=== PATIENT | male | born 1960 | race Hispanic/Latino ===

== ENCOUNTER 2019-03-02 06:03 | Day surgery (SDC) | payer OTHER ==
[~2019-03-02 06:03] MED LIST: SODIUM CHLORIDE 0.9% 1000 ML 1,000 ML IV SCH
[2019-03-02] MEDS ORDERED: LIDOCAINE MPF (2%) 20 MG/1 ML VIAL 5 ML ONE (07:30)
--- NOTE | 2019-03-02 08:23 | Anesthesia Consultation ---
Anesthesia Consult and Med Hx Date of service: 03/02/19 - Airway Anesthetic Teeth Evaluation: Chipped (upper front) ROM Head & Neck: Adequate Mental/Hyoid Distance: Adequate Mallampati Class: Class III Intubation Access Assessment: Possibly Difficult - Pre-Operative Health Status ASA Pre-Surgery Classification: ASA3 Proposed Anesthetic Plan: MAC - Pulmonary Hx Sleep Apnea: Yes (uses CPAP ) - Cardiovascular System Hx Hypertension: Yes Hx Coronary Artery Disease: No (high cholesterol) Hx Cardia Arrhythmia: Yes (on Elequis) - Endocrine Hx Non-Insulin Dependent Diabetes: Yes - Other Systems Hx Obesity: Yes (BMI 33.8)
--- NOTE | 2019-03-02 08:23 | Anesthesia Day of Surgery ---
Anesthesia Day of Surgery - Day of Surgery Patient Examined: Yes Patient H&P Reviewed: Yes Patient is NPO: Yes Beta Blockers: Yes
--- NOTE | 2019-03-02 09:53 | Procedure Note ---
Date of procedure: 03/02/19 Pre-op diagnosis: Screening Colonoscopy/F/H/O Cancer Post-op diagnosis: other (Colon Polyps (one in the Rectum and one in the Ascending Colon)/ Moderate,Left Colon Diverticuli/ Mild to Moderate Internal Hemorrhoid) Procedure: Colonoscopy with cold Biopsy and Cold, Snare Polypectomy Anesthesia: PRUDENCE Surgeon: LUIS SANDRA Estimated blood loss: minimal Pathology: list Specimen disposition: to lab Condition: stable Disposition: same day (Avoid anticoagulant,aspirin and NSAID for 5 d ays;otherwise resume home medication. Encourage fiber intake and follow up in 1 to 2 weeks ([phone]).)
[2019-03-02] MEDS ORDERED: PROPOFOL 200 MG/20 ML VIAL IV ONE (09:59)
--- NOTE | 2019-03-02 10:12 | Operative Report ---
PROCEDURE: Colonoscopy with cold biopsy and snare polypectomy. INDICATIONS: A 58-year-old white male with a strong family history of cancer. The patient's son had a brain tumor, likely glioblastoma and mother also had cancer. The patient had a colonoscopy done as part of colon polyp screening. DESCRIPTION OF PROCEDURE: Procedure was done after getting informed consent with MAC anesthesia. Initial rectal exam was unremarkable. Instrument was passed through the rectum onto the cecum, which was identified by the ileocecal valve and the appendiceal orifice. Visualization was fair to good. The terminal ileum was intubated showed normal mucosa. The cecum was also visualized in the retroverted view. No additional pathology was noted. In the ascending colon, there was a 7 mm small sessile polyp that was removed by cold biopsy. The remaining part of the ascending colon, the transverse colon showed normal mucosa. There was moderate diverticular disease noted in the left colon and the rectum showed a 10 mm sessile polyp that was removed by cold snare polypectomy and then retrieved. There was minimal bleeding from the polypectomy site. The rectum also showed [id number] internal hemorrhoid on the retroverted view. ASSESSMENT: Colon polyp screening, family history of cancer, colon polyps involving one in the rectum and one in the ascending colon. The rectal polyp was removed by cold snare polypectomy and the ascending colon polyp by cold biopsy. There was moderate left colon diverticula and [id number] internal hemorrhoid. There is minimal bleeding from the polypectomy sites. No complications associated with the procedure. The patient will be asked to avoid aspirin and aspirin-related products and anticoagulants for the next 5 days. Encouraged to take fiber supplements. Resume other medication besides anticoagulants, aspirin and aspirin-related products and follow up in the office in 1-2 weeks' time. Procedure was done in the GI lab with assistance of the GI lab team, which included SURY, Roma Barbosa; Muriel edward and with assistance of anesthesia. JOB# [id number] LOREE/ALEX
[2019-03-02 10:43] VITALS: BP 157/84
--- NOTE | 2019-03-02 13:24 | Post Anesthesia Evaluation ---
- Post Anesthesia Evaluation Patient Participated: Yes Airway Patent: Yes Stable Respiratory Function: Yes Nausea/Vomiting: No Temp > 96.8F: Yes Pain Manageable: Yes Adequeate Hydration: Yes Anesthesia Complications: No Block Receding Appropriately: Not Applicable Patient on Ventilator: No
== END 2019-03-02 06:04 | disposition home or self-care (01) ==
LOC: GIO 06:03
DX: Z12.11 Encounter for screening for malignant neoplasm of colon (principal); D12.2 Benign neoplasm of ascending colon; K62.1 Rectal polyp; K64.8 Other hemorrhoids; E11.9 Type 2 diabetes mellitus without complications; I10 Essential (primary) hypertension; G47.30 Sleep apnea, unspecified; I42.9 Cardiomyopathy, unspecified; E66.9 Obesity, unspecified; Z68.33 Body mass index [BMI] 33.0-33.9, adult; Z80.0 Family history of malignant neoplasm of digestive organs; Z80.8 Family history of malignant neoplasm of other organs or systems
CPT/HCPCS: 45380; 45385; 82962; 88305; J2704; J7030

== ENCOUNTER 2020-06-29 00:30 | Emergency (ER) | payer OTHER ==
[2020-06-29] MEDS ORDERED: LORazepam 2 MG/ML VIAL ONE (01:24)
[2020-06-29] MEDS ORDERED: ZIPRASIDONE MESYLATE 20 MG VIAL IM ONE ×2 (01:24→01:44)
[2020-06-29] MEDS ORDERED: LORazepam 2 MG/ML VIAL IM ONE (01:44)
[2020-06-29 01:56] LABS: Basophils # (Auto) 0.1 K/mm3 (0.0-0.1); Basophils % (Auto) 1.6 % (0.0-1.8); Eosinophils # (Auto) 0.1 K/mm3 (0.0-0.4); Eosinophils % (Auto) 0.9 % (0.0-4.3); Hematocrit 37.7 % (35.5-45.6); Hemoglobin 12.9 gm/dl (11.8-15.2); Lymphocytes # (Auto) 1.3 K/mm3 (1.2-5.4); Lymphocytes % (Auto) 14.7 % (13.4-35.0); Mean Corpuscular HGB Conc 34 % (32-34); Mean Corpuscular Volume 84 fl (84-94); Monocytes # (Auto) 0.7 K/mm3 (0.0-0.8); Monocytes % (Auto) 8.1 % (0.0-7.3); Platelet Count 267 K/mm3 (140-440); Red Blood Count 4.51 M/mm3 (3.65-5.03); Red Cell Distribution Width 15.1 % (13.2-15.2)
--- NOTE | 2020-06-29 02:02 | Emergency Department Report ---
ED Psych HPI - General Chief Complaint: Altered Mental Status Stated Complaint: MH Time Seen by Provider: 06/29/20 01:04 Source: EMS Mode of arrival: Stretcher - History of Present Illness Initial Comments: 59-year-old male with recent diagnosis of bipolar disorder presents to ED for mental health evaluation. Family reports patient began exhibiting bizarre behavior after kinza COVID-19 2 months ago. Patient has been to various hospitals 5 times for mental health issues since having Covid. Patient was diagnosed with bipolar disorder, however he has not been taking his medications. Family reports patient is okay during the day but gets worse at night, buying things off of the TV, hiding in the vasquez, and becoming hyperverbal. Most recently, patient was at [facility] on Wednesday for psychiatric evaluation. Patient denies any SI, HI, hallucinations. -: This evening History of same: Yes Improves With: none Worsens With: none Context: not taking psychiatric Associated Symptoms: denies other symptoms Treatments Prior to Arrival: none - Related Data Previous Rx's Medication Instructions Recorded Last Taken Type Magnesium Oxide 500 mg PO DAILY #30 capsule 06/29/20 Unknown Rx Potassium Chloride [K-Dur] 10 meq PO QDAY #30 tablet 06/29/20 Unknown Rx Allergies Allergy/AdvReac Type Severity Reaction Status Date / Time No Known Allergies Allergy Unverified 03/01/19 15:11 ED Review of Systems ROS: Stated complaint: MH Other details as noted in HPI Comment: All other systems reviewed and negative Psychiatric: denies: auditory hallucinations, visual hallucinations, homicidal thoughts, suicidal thoughts ED Past Medical Hx - Past Medical History Hx Hypertension: Yes Hx Diabetes: Yes - Social History Smoking Status: Unknown if ever smoked - Medications Home Medications: Home Medications Medication Instructions Recorded Confirmed Last Taken Type Magnesium Oxide 500 mg PO DAILY #30 capsule 06/29/20 Unknown Rx Potassium Chloride [K-Dur] 10 meq PO QDAY #30 tablet 06/29/20 Unknown Rx ED Physical Exam - General Limitations: Altered Mental Status General appearance: alert, in no apparent distress - Head Head exam: Present: atraumatic, normocephalic - Eye Eye exam: Present: normal appearance - ENT ENT exam: Present: mucous membranes moist - Neck Neck exam: Present: normal inspection - Respiratory Respiratory exam: Present: normal lung sounds bilaterally. Absent: respiratory distress - Cardiovascular Cardiovascular Exam: Present: normal rhythm, tachycardia - GI/Abdominal GI/Abdominal exam: Absent: distended - Extremities Exam Extremities exam: Present: other (Patient has superficial scratches on abrasions to bilateral lower legs) - Neurological Exam Neurological exam: Present: alert, oriented X3 - Psychiatric Psychiatric exam: Present: manic (Patient is hyperverbal, singing hinduism hymns very loudly, talking about pentecostalism) - Skin Skin exam: Present: warm, dry, intact, normal color ED Course Vital Signs 06/29/20 06/29/20 06/29/20 00:44 01:55 02:02 Temperature 98.2 F Pulse Rate 112 H Respiratory 18 18 Rate Blood Pressure 148/84 Blood Pressure [Left] O2 Sat by Pulse 99 94 Oximetry 06/29/20 06/29/20 06/29/20 02:15 02:31 02:36 Temperature Pulse Rate 95 H Respiratory Rate Blood Pressure 156/81 126/71 Blood Pressure [Left] O2 Sat by Pulse 91 95 Oximetry 06/29/20 06/29/20 06/29/20 02:45 03:01 03:31 Temperature Pulse Rate Respiratory Rate Blood Pressure 129/66 136/67 114/64 Blood Pressure [Left] O2 Sat by Pulse 96 96 93 Oximetry 06/29/20 06/29/20 06/29/20 04:15 04:45 05:01 Temperature Pulse Rate Respiratory Rate Blood Pressure 127/77 127/77 128/67 Blood Pressure [Left] O2 Sat by Pulse 95 98 93 Oximetry 06/29/20 06/29/20 06/29/20 05:15 05:31 05:45 Temperature Pulse Rate Respiratory Rate Blood Pressure 137/69 114/62 124/67 Blood Pressure [Left] O2 Sat by Pulse 92 92 87 Oximetry 06/29/20 06/29/20 06/29/20 06:01 06:15 07:17 Temperature Pulse Rate 103 H Respiratory Rate Blood Pressure 106/75 109/64 Blood Pressure [Left] O2 Sat by Pulse 92 94 Oximetry 06/29/20 12:32 Temperature Pulse Rate 102 H Respiratory 18 Rate Blood Pressure Blood Pressure 153/92 [Left] O2 Sat by Pulse 99 Oximetry ED Medical Decision Making - Lab Data Result diagrams: 06/29/20 01:34 06/29/20 07:08 - Medical Decision Making 59-year-old male with recent diagnosis of bipolar disorder presents to ED for mental health evaluation. Family reports patient began exhibiting bizarre behavior after kinza COVID-19 2 months ago. Patient has been to various hospitals 5 times for mental health issues since having Covid. Patient was diagnosed with bipolar disorder, however he has not been taking his medications. Family reports patient is okay during the day but gets worse at night, buying things off of the TV, hiding in the vasquez, and becoming hyperverbal. Most recently, patient was at [facility] on Wednesday for psychiatric evaluation. Patient denies any SI, HI, hallucinations. Patient required chemical restraint secondary to his manic behavior here in the ED. Labs are normal except for potassium of 2.9. This has been repleted with p.o. potassium. Family reports patient symptoms are worse at night. Possible ing. Patient is currently medically clear for mental health evaluation. Will dispo per psych. - Differential Diagnosis Bipolar, dementia Critical care attestation.: If time is entered above; I have spent that time in minutes in the direct care of this critically ill patient, excluding procedure time. ED Disposition Clinical Impression: Hypokalemia, Hypomagnesemia, Bipolar disorder Disposition: DC-01 TO HOME OR SELFCARE Is pt being admited?: No Condition: Stable Instructions: Managing Bipolar Disorder, Hypomagnesemia, Hypokalemia Additional Instructions: OUTPATIENT MENTAL HEALTH RESOURCES [facility] Jayde Merrill MD: [address] [place] [address] [place] [address] [facility]: [facility] [address] [place] [address] [place] [address] [phone] [facility]: [facility]: [address] [place] [address] [facility] [id number] [facility]: Sunday Naik MD: [address] [facility] [id number] [facility]: [address] [place] [address] [phone] [place] CRISIS AND ACCESS LINE: Prescriptions: Potassium Chloride [K-Dur] 10 meq PO QDAY #30 tablet Magnesium Oxide 500 mg PO DAILY #30 capsule [facility]errals: [facility], [facility] [Other] - 3-5 Days EARLIMART MICHELLE SANDY MD [Primary Care Provider] - 3-5 Days
[2020-06-29 02:08] LABS: Alanine Aminotransferase 24 units/L (7-56); Albumin 3.8 g/dL (3.9-5); BUN/Creatinine Ratio 21; Blood Urea Nitrogen 17 mg/dL (9-20); Calcium 8.4 mg/dL (8.4-10.2); Hemolysis Index 4
[2020-06-29 02:09] LABS: Bilirubin,Direct < 0.2 mg/dL (0-0.2)
[2020-06-29] MEDS ORDERED: POTASSIUM CHLORIDE ER 20 MEQ TAB PO ONE ×3 (03:13→12:22)
[2020-06-29 04:13] LABS: Amphetamine Screen,Urine Negative; Benzodiazepines Screen,Urine Negative; Cannabinoid Screen,Urine Negative; Cocaine Screen,Urine Negative; Methadone Screen,Urine Negative; Opiate Screen,Urine Negative
[2020-06-29 05:52] LABS: Bilirubin,Urine NEG (Negative); Blood,Urine NEG (Negative); Color,Urine Straw (Yellow); Mucus,Urine FEW /HPF; Protein,Urine <15 mg/dL mg/dL (Negative); RBC,Urine < 1.0 /HPF (0.0-6.0); Urobilinogen,Urine < 2.0 mg/dL (<2.0); WBC,Urine < 1.0 /HPF (0.0-6.0)
[2020-06-29] MEDS ORDERED: ZIPRASIDONE MESYLATE 20 MG VIAL IM PRN (07:00)
[2020-06-29 08:15] LABS: Blood Urea Nitrogen 14 mg/dL (9-20); Calcium 8.9 mg/dL (8.4-10.2); Hemolysis Index 3
[2020-06-29 08:17] LABS: BUN/Creatinine Ratio 20
--- NOTE | 2020-06-29 11:37 | Consultation ---
History of Present Illness - Reason for Consult Consult date: 06/29/20 Reason for consult: anxiety - History of Present Psychiatric Illness Per ED Note: 59-year-old male with recent diagnosis of bipolar disorder presents to ED for mental health evaluation. Family reports patient began exhibiting bizarre behavior after kinza COVID-19 2 months ago. Patient has been to various hospitals 5 times for mental health issues since having Covid. Patient was diagnosed with bipolar disorder, however he has not been taking his medications. Family reports patient is okay during the day but gets worse at night, buying things off of the TV, hiding in the vasquez, and becoming hyperverbal. Most recently, patient was at [facility] on Wednesday for psychiatric evaluation. Patient denies any SI, HI, hallucinations. 59y/o Abdullahi Ramsey was seen today. He is calm, cooperative. He is pleasant and polite. The patient says he was brought to the hospital for anxiety by his family. He says "I wanted to take all of them out to dinner with my money." He says "I felt it in my heart to do that." The patient says "the couldn't take how much I was talking. I guess my anxiety and bipolar was getting to them." The patient says he has high anxiety. He says at times it keeps him up. But the patient says "overall I sleep good though." [facility]. He says they have him on "xanax and two other pills." The patient says he was told by his niece not to take the two other pills, just take the xanax. The patient denies SI/HI. He says "I'm one of the nicest people you'd ever meet." He says "I would never hurt anybody, myself or anybody." The patient says "COVID messed me up. I just haven't been right since." The patient also denies hallucinations of any kind. Advised the patient that he needed to get back on all of his meds and take them as prescribed. He says he [facility] an appointment with [facility] next week and will discuss it with his doctor. PAST PSYCHIATRIC HISTORY: Diagnoses: anxiety, bipolar Suicide attempts or Self-harm behavior: Denies Prior psychiatric hospitalizations: Yes Substance Abuse history: Denies Previous psychiatric medications tried: xanax Outpatient treatment: primary care PAST MEDICAL HISTORY: COVID Family Psychiatric History: None reported or documented SOCIAL HISTORY Marital Status: Living Arrangements: With spouse Employment Status: Unemployed Access to guns/weapons: Denies Education: high school History of Abuse: Denies Legal History: Denies REVIEW OF SYSTEMS Constitutional: Negative for weight loss ENT: Negative for stridor Respiratory: Negative for cough or hemoptysis All other systems reviewed and are negative MENTAL STATUS EXAMINATION General Appearance and Behavior: Age appropriate, good hygiene, not wearing appropriate clothes, good eye contact, calm, pleasant, cooperative polite with questioning. Cooperation: Participating/engaged Psychomotor Behavior: Psychomotor normal Mood: "anxious" Affect and affective range: Euthymic Thought Process: Goal directed Speech: Normal tone and pace Intellectual Functioning: Average Thought Content Suicidal Ideation: Denies Homicidal Ideation: Denies Hallucinations: Denies Delusions: None elicited Impulse Control: Limited Insight and Judgment: Limited insight and judgment Memory: Limited Attention: attentive Orientation: A/o x 3 Assessment and Plan (1)Bipolar Disorder (2) Noncompliance with other medical treatments and regimen Treatment Plan Restart and comply with medications given by the [facility] Follow up with [facility] to discuss medications and make adjustments as necessary Sitter: Defer to primary Medical: Per primary Disposition: Do not recommend acute psychiatric inpatient at this time The patient is to follow up with outpatient psych or primary next week with stated appointment at [place] He is to comply with all medical regimens The restaurant hospitality manager to give the patient resources for CBT, and more resources for outpatient psychiatry Will sign off. Thank you for this consult. Case staffed with Dr. Li. Medications and Allergies Allergies Allergy/AdvReac Type Severity Reaction Status Date / Time No Known Allergies Allergy Unverified 03/01/19 15:11 Active Meds: Active Medications Ziprasidone (Ziprasidone Mesylate 20 Mg Vial) 10 mg IM Q12H PRN PRN Reason: Agitation Mental Status Exam - Vital signs Last Vital Signs Temp 98.2 F 06/29/20 00:44 Pulse 103 H 06/29/20 07:17 Resp 18 06/29/20 01:55 BP 109/64 06/29/20 06:15 Pulse Ox 94 06/29/20 06:15 Results Result Diagrams: 06/29/20 01:34 06/29/20 07:08 Abnormal lab results 06/29/20 06/29/20 06/29/20 Range/Units 01:34 01:34 01:34 Webb % (Auto) 8.1 H (0.0-7.3) % Seg Neutrophils % 74.7 H (40.0-70.0) % Potassium 2.9 L* (3.6-5.0) mmol/L Creatinine (0.8-1.3) mg/dL Glucose 273 H (75-100) mg/dL Magnesium (1.7-2.3) mg/dL Albumin 3.8 L (3.9-5) g/dL Salicylates < 0.3 L (2.8-20.0) mg/dL Acetaminophen (10.0-30.0) ug/mL 06/29/20 06/29/20 Range/Units 01:34 07:08 Webb % (Auto) (0.0-7.3) % Seg Neutrophils % (40.0-70.0) % Potassium 3.3 L (3.6-5.0) mmol/L Creatinine 0.7 L (0.8-1.3) mg/dL Glucose 285 H (75-100) mg/dL Magnesium 1.20 L (1.7-2.3) mg/dL Albumin (3.9-5) g/dL Salicylates (2.8-20.0) mg/dL Acetaminophen 5.0 L (10.0-30.0) ug/mL All other labs normal.
[2020-06-29 12:32] VITALS: BP 153/92
--- NOTE | 2020-06-29 12:32 | Emergency Department Report ---
Blank Doc - Documentation Documentation: 59-year-old male with a recent diagnosis of bipolar disorder. He is diabetic a nd has a history of hypertension. [facility]. I have been informed by psychiatry that he is ready for discharge. Therefore I reviewed his laboratory database and updated his vital signs. His exam shows a clinically stable individual with a blood pressure 150/93. His lungs are clear cardiac without murmur. He is neurologically intact. Psychiatric exam shows a normal mood and affect. He is coherent. Laboratory studies indicate significant hypokalemia. This was aggressively repleted by the previous emergency physician. I added a magnesium which was dago te low at 1.2. Therefore I added magnesium and additional potassium being that his K was 3.3 when last checked. 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 He is also hypomagnesemic. He may have chronic liver disease as well. This not been assay. He does require ongoing supplementation. He states that Rosy 1 week ago also found him to be hypokalemic. The degree that these electrolyte imbalance contributes to his mental status changes is unknown. However he is completely coherent now and appropriate for outpatient disposition. I have explained to him the need for continued prescription for his electrolyte disturbance. This will be written. He knows to follow-up at the [facility] to reassess his electrolytes. He is quite cooperative and appropriate for discharge at this time.
[2020-06-29] MEDS ORDERED: MAGNESIUM OXIDE 400 MG TAB PO ONE (13:00)
== END 2020-06-29 13:40 | disposition home or self-care (01) ==
LOC: ED 00:30
DX: F31.9 Bipolar disorder, unspecified (principal); E87.6 Hypokalemia; E83.42 Hypomagnesemia; I10 Essential (primary) hypertension; E11.9 Type 2 diabetes mellitus without complications; Z79.899 Other long term (current) drug therapy
CPT/HCPCS: 36415; 80048; 80076; 80307; 81001; 82962; 83735; 85025; 96372; 99284; J2060; J3486; 80320; G0480